=== PATIENT | female | born 2000 | race Caucasian/White ===

== ENCOUNTER 2022-03-06 09:55 | Emergency (ER) | payer OTHER, SELFPAY ==
--- NOTE | 2022-03-06 10:05 | ED.URI ---
HPI - URI/Sore Throat General Chief Complaint: Ear Stated Complaint: Ear Pain Time Seen by Provider: 03/06/22 10:07 Source: patient, RN notes reviewed and old records reviewed Mode of arrival: ambulatory Limitations: no limitations History of Present Illness HPI Narrative: 21-year-old female presents to the [facility] with decreased hearing and bilateral ear pain for days. The [facility] with her mom. Mom states that she has been swimming either Thursday or Thursday and has been using swimmer's ear. Denies any fevers. Denies any new nausea or vomiting. She is estimated delivery date of September 18, 2022 Related Data Home Medications Medication Instructions Recorded Confirmed vits 75-iron 28 mg-folic 1 pkg PO DAILY 03/06/22 03/06/22 acid 800 mcg-omega3 440 mg oral pack Allergies Allergy/AdvReac Type Severity Reaction Status Date / Time AMOXICILLIN TRIHYDRATE AdvReac Mild Hives Uncoded 03/06/22 10:01 POTASSIUM CLAVULANATE AdvReac Mild Hives Uncoded 03/06/22 10:01 Review of Systems Review of Systems: All systems reviewed & are unremarkable except as noted in HPI and below Constitutional: Constitutional: Reports no additional constitutional complaints, Denies chills and Denies fever(s) Eyes: Eyes: Reports no additional eye complaints ENT: Reports as per HPI (Bilateral ear pain), Denies change in voice, Denies dental pain, Denies vertigo, Denies dizziness, Denies nasal congestion, Denies sore throat and Denies throat swelling Comments: Ear pain Cardiovascular: Cardiovascular: Reports no additional cardiovascular complaints, Denies chest pain and Denies dyspnea Respiratory: Respiratory: Reports no additional respiratory complaints, Denies cough and Denies dyspnea Gastrointestinal: Gastrointestinal: Reports no additional gastrointestinal complaints, Denies abdominal pain, Denies nausea and Denies vomiting Musculoskeletal: Musculoskeletal: Reports no additional musculoskeletal complaints Integumentary/Breasts: Skin/Breast: Reports system reviewed and no additional complaints, except as docu Neurologic: Reports system reviewed and no additional complaints, except as documented, Denies vertigo and Denies dizziness Psychiatric: Psychiatric: Reports no additional psychiatric complaints Allergic/Immunologic: Allergic/Immunologic: Reports no additional allergic/immunologic complaints and Denies throat swelling PMFSH Past Medical History Medical History Heart murmur Surgical History Surgical History H/O gynecological procedure Nexplanon insertion 09/08/2017 Nexplanon removal - 10/14/2018 Social History Social History Smoking status: Current some day smoker Tobacco type: cigarettes Alcohol intake: never Substance use: current Substance use type: marijuana Gender identity (if verbalized by the patient): Female Sexual Orientation (if Verbalized by the Patient): Straight or Heterosexual Comments At the time of my signature, I reviewed and agree with the nursing past medical, surgical, social, and family history. There is no relevant family history pertinent to the patient complaint. Exam Const: General: healthy appearing and no acute distress Nutritional Appearance: well nourished Orientation/consciousness: patient oriented x3 Limitations: no limitations HENMT: Head: normal to inspection Ears: external ears normal, Abnormal EAC present cerumen impaction on the right and TM abnormal erythematous bilateral General nose exam: Normal external nose present and Normal nasal mucous membranes and turbinates present Face and sinus: normal facial exam Mouth: Yes Normal oral and palatal mucosa present Throat: posterior oropharynx normal, tonsils normal and uvula midline Eyes: Conjunctivae: conjunctivae normal Pupils: Eq
[2022-03-06 10:07] VITALS: BP 103/54; PULSE 88; RESP 16; TEMP 36.4; O2SAT 99
== END 2022-03-06 10:21 | disposition home or self-care (01) ==
PROVIDERS: Emergency Provider Nurse Practitioner
DX: H66.93 Otitis media, unspecified, bilateral (principal); H61.21 Impacted cerumen, right ear; R01.1 Cardiac murmur, unspecified
CPT/HCPCS: 69209; 99213; A9270; G0463

== ENCOUNTER 2022-05-06 11:11 | Outpatient (CLI) | payer OTHER, SELFPAY ==
[2022-05-06 11:55] LABS: Basophils Absolute Auto 0.1 K/mm3 (0.0-0.1); Basophils Percent Auto 0.6 % (0.2-1.2); Eosinophils Absolute Auto 0.2 K/mm3 (0-0.3); Eosinophils Percent Auto 1.8 % (0-4.4); Hematocrit 37.7 % (37.0-47.0); Hemoglobin 12.6 g/dL (12.0-15.0); Immature Granulocyte Percent A 2.3 % (0-0.5); Lymphocytes Absolute Auto 1.81 K/mm3 (0.9-3.2); Lymphocytes Percent Auto 21.2 % (18.3-44.2); Mean Corpuscular HGB Conc 33.4 g/dl (32-36); Mean Corpuscular Hemoglobin 29.9 pg (26-34); Mean Corpuscular Volume 89.3 fl (80-100); Mean Platelet Volume 10.6 fl (7.4-10.4); Monocytes Absolute Auto 0.5 K/mm3 (0.1-0.6); Monocytes Percent Auto 5.7 % (2.6-8.5); Neutrophils Absolute Auto 5.9 K/mm3 (1.3-6.7); Neutrophils Percent Auto 68.4 % (45.5-73.1); Platelet Count Result 288 k/mm3 (150-375); Red Blood Count 4.22 M/mm3 (4.2-5.4); Red Cell Distribution Width 14.5 % (11.5-14.5); White Blood Count 8.6 K/mm3 (4.5-10.0)
[2022-05-06 12:47] LABS: HIV 1/2 Ab P24 Ag Result Negative (Negative)
[2022-05-06 13:28] LABS: Hepatitis B Surface Antigen Negative (Negative); Rubella IgG Antibody 10.6 IU/ML
[2022-05-07 16:23] LABS: Rapid Plasma Reagin Non-Reactive (NonReactive)
[2022-05-08 13:43] LABS: CMV IgG Antibody >10.00 U/mL (<0.60)
[2022-05-09 14:22] LABS: Varicella IgG Antibody <135.00 Index (>=165.00)
[2022-05-15 20:29] LABS: CF Result NEGATIVE (NEGATIVE); Ethnicity NG
[2022-05-20 14:45] LABS: SMA Results Received Yes
== END 2022-05-06 11:12 | disposition home or self-care (01) ==
LOC: ANHLAB 11:13
PROVIDERS: Visit Provider Obstetrics & Gynecology
DX: N94.89 Other specified conditions associated with female genital organs and menstrual cycle (principal)
CPT/HCPCS: 36415; 81220; 81329; 84702; 85025; 86592; 86644; 86703; 86747; 86762; 86787; 86850; 86900; 86901; 87086; 87340; G0432

== ENCOUNTER 2022-05-23 11:20 | Observation (INO) | payer OTHER, SELFPAY ==
[2022-05-23 11:35] VITALS: BMI 22.3
--- NOTE | 2022-05-23 11:40 | OBADM ---
This patient, Kye Diaz, admitted to the OB room OB Post 111 for observation. Patient/family oriented to hospital policies and general routines including ID bracelet, bed and alarms, visiting hours, pain management, procedures, bathroom and other care routines, personal items, smoking policy, room service/diet, and visiting hours. Patient/Family are encouraged to report perceived risks to care and to ask questions if they do not understand what they are told or what they should do.
[2022-05-23 11:45] VITALS: BP 108/54; PULSE 78
[2022-05-23 12:00] VITALS: BP 105/51; PULSE 78
[2022-05-23 12:15] VITALS: BP 107/52; PULSE 83
[2022-05-23 12:30] VITALS: BP 106/50; PULSE 79
--- NOTE | 2022-05-29 08:59 | PM.OBTRLD ---
OB - Triage/Final Diagnosis Visit Information Reason for evaluation: threatened labor Comments/Additional reasons for admission: I have assessed the risk for this patient, Kye Diaz, and determined that she would benefit from observation care.
== END 2022-05-23 12:38 | disposition home or self-care (01) ==
PROVIDERS: Admitting Provider Obstetrics & Gynecology; Visit Provider Obstetrics & Gynecology
DX: O47.02 False labor before 37 completed weeks of gestation, second trimester (principal); Z3A.23 23 weeks gestation of pregnancy
CPT/HCPCS: G0378; G0379

== ENCOUNTER 2022-06-27 11:07 | Outpatient (CLI) | payer OTHER, SELFPAY ==
[2022-06-27 12:50] LABS: Basophils Absolute Auto 0.1 K/mm3 (0.0-0.1); Basophils Percent Auto 0.5 % (0.2-1.2); Eosinophils Absolute Auto 0.1 K/mm3 (0-0.3); Eosinophils Percent Auto 1.3 % (0-4.4); Hematocrit 34.6 % (37.0-47.0); Immature Granulocyte Absolute 0.17 K/mm3 (0.00-0.031); Immature Granulocyte Percent A 1.5 % (0-0.5); Lymphocytes Percent Auto 15.3 % (18.3-44.2); Mean Corpuscular HGB Conc 34.7 g/dl (32-36); Mean Corpuscular Hemoglobin 31.2 pg (26-34); Mean Corpuscular Volume 89.9 fl (80-100); Mean Platelet Volume 10.7 fl (7.4-10.4); Monocytes Absolute Auto 0.8 K/mm3 (0.1-0.6); Monocytes Percent Auto 6.9 % (2.6-8.5); Neutrophils Absolute Auto 8.3 K/mm3 (1.3-6.7); Neutrophils Percent Auto 74.5 % (45.5-73.1); Platelet Count Result 208 k/mm3 (150-375); Red Blood Count 3.85 M/mm3 (4.2-5.4); Red Cell Distribution Width 13.3 % (11.5-14.5); White Blood Count 11.1 K/mm3 (4.5-10.0)
[2022-06-27 13:09] LABS: Glucose 1 Hour PP 50gm Dose 92 mg/dL
== END 2022-06-27 11:08 | disposition home or self-care (01) ==
LOC: ANHLAB 11:10
PROVIDERS: Visit Provider Obstetrics & Gynecology
DX: Z34.90 Encounter for supervision of normal pregnancy, unspecified, unspecified trimester (principal); Z3A.00 Weeks of gestation of pregnancy not specified
CPT/HCPCS: 36415; 82947; 85025

== ENCOUNTER 2022-07-04 08:24 | Emergency (ER) | payer OTHER, SELFPAY ==
[2022-07-04 08:30] VITALS: BP 123/61; PULSE 88; RESP 18; TEMP 36.4; O2SAT 100
--- NOTE | 2022-07-04 08:41 | ED.URI ---
HPI - URI/Sore Throat General Chief Complaint: Upper Respiratory Infection Stated Complaint: nose congestion, runny nose Time Seen by Provider: 07/04/22 08:46 Source: patient, RN notes reviewed and old records reviewed Mode of arrival: ambulatory Limitations: no limitations History of Present Illness HPI Narrative: 22-year-old female presents to the [facility] with nasal congestion, runny nose for 3 days Patient states that she is 29 weeks . Per medical record had visited OB, Dr. Herrera, 01 July, 3 days ago Related Data Home Medications Medication Instructions Recorded Confirmed [id number] 1 mg 1 tablet PO DAILY 07/04/22 07/04/22 tablet Allergies Allergy/AdvReac Type Severity Reaction Status Date / Time amoxicillin [From Augmentin] Allergy Rash Verified 07/04/22 08:28 clavulanic acid Allergy Rash Verified 07/04/22 08:28 [From Augmentin] Review of Systems Review of Systems: All systems reviewed & are unremarkable except as noted in HPI and below Constitutional: Constitutional: Reports no additional constitutional complaints, Denies chills and Denies fever(s) Eyes: Eyes: Reports no additional eye complaints ENT: Reports as per HPI and Reports nasal congestion Cardiovascular: Cardiovascular: Reports no additional cardiovascular complaints Respiratory: Respiratory: Reports no additional respiratory complaints Gastrointestinal: Gastrointestinal: Reports no additional gastrointestinal complaints Musculoskeletal: Musculoskeletal: Reports no additional musculoskeletal complaints Integumentary/Breasts: Skin/Breast: Reports system reviewed and no additional complaints, except as docu Neurologic: Reports system reviewed and no additional complaints, except as documented Psychiatric: Psychiatric: Reports no additional psychiatric complaints Allergic/Immunologic: Allergic/Immunologic: Reports no additional allergic/immunologic complaints [facility] Past Medical History Medical History (Updated 07/04/22 @ 08:58 by Paulette Chadwick APRN) Encounter for screening examination for sexually transmitted disease Heart murmur Surgical History Surgical History H/O gynecological procedure Nexplanon insertion 09/08/2017 Nexplanon removal - 10/14/2018 Social History Social History Smoking status: Current some day smoker Tobacco type: cigarettes Alcohol intake: never Substance use: current Substance use type: marijuana Gender identity (if verbalized by the patient): Female Sexual Orientation (if Verbalized by the Patient): Straight or Heterosexual Comments At the time of my signature, I reviewed and agree with the nursing past medical, surgical, social, and family history. There is no relevant family history pertinent to the patient complaint. Exam Const: General: healthy appearing, no acute distress and alert Nutritional Appearance: well nourished Orientation/consciousness: patient oriented x3 Limitations: no limitations HENMT: Head: normal to inspection Ears: external ears normal, TM's normal bilaterally and EAC's normal General nose exam: Normal external nose present, Normal nares present and no nasal discharge noted Face and sinus: normal facial exam and sinuses nontender Mouth: Yes Normal oral and palatal mucosa present, Yes lip normal and Yes moist mucous membranes Throat: posterior oropharynx normal and uvula midline Eyes: General: appearance normal, both eyes and all related structures Conjunctivae: conjunctivae normal Pupils: Equal, round and reactive pupils present Neck: Neck: normal visual inspection, no lymphadenopathy and no meningeal signs Chest: Chest palpation & inspection: normal inspection of the chest Resp: Effort & Inspection: normal respiratory effort and no use of accessory muscles Auscultation: clear to auscultation bilaterally, no
== END 2022-07-04 09:02 | disposition home or self-care (01) ==
PROVIDERS: Emergency Provider Nurse Practitioner
DX: O99.513 Diseases of the respiratory system complicating pregnancy, third trimester (principal); Z3A.29 29 weeks gestation of pregnancy; J06.9 Acute upper respiratory infection, unspecified; F17.210 Nicotine dependence, cigarettes, uncomplicated; R01.1 Cardiac murmur, unspecified
CPT/HCPCS: 99211; G0463

== ENCOUNTER 2022-07-12 09:20 | Outpatient (RCR) | payer OTHER, SELFPAY ==
[2022-07-12 10:09] VITALS: BP 109/68; PULSE 98
== END 2022-09-05 07:36 | disposition home or self-care (01) ==
LOC: ANHOBOP 09:20
PROVIDERS: Visit Provider Obstetrics & Gynecology
DX: O36.8130 Decreased fetal movements, third trimester, not applicable or unspecified (principal); Z3A.30 30 weeks gestation of pregnancy
CPT/HCPCS: 59025

== ENCOUNTER 2022-08-09 11:01 | Observation (INO) | payer OTHER, SELFPAY ==
[2022-08-09] VITALS (8 sets, daily range): BP systolic 106–114; BP diastolic 61–70; PULSE 84–102; BMI 24.4
--- NOTE | 2022-08-09 11:10 | OBADM ---
This patient, Kye Diaz, admitted to the OB room OB Post 116 for observation. Patient/family oriented to hospital policies and general routines including ID bracelet, bed and alarms, visiting hours, pain management, procedures, bathroom and other care routines, personal items, smoking policy, room service/diet, and visiting hours. Patient/Family are encouraged to report perceived risks to care and to ask questions if they do not understand what they are told or what they should do.
[2022-08-09 12:47] LABS: Appearance Urine Clear (Clear); Bilirubin Urine Negative (Negative); Blood Urine Negative (Negative); Color Urine Yellow (Yellow); Glucose Urine UA Negative (Negative); Ketones Urine Negative (Negative); Leukocyte Esterase Ur Negative LEU/UL (NEGATIVE); Nitrate Urine Negative (Negative); Protein Urine Negative (Negative); Specific Grav Ur 1.015 (1.001-1.035); Urobilinogen Urine 0.2 mg/dL (<2.0)
[2022-08-09 12:56] LABS: Add Urine Microscopic? NO
--- NOTE | 2022-08-13 07:54 | P.PNOB_ITS ---
OB - Triage/Final Diagnosis Visit Information Reason for evaluation: threatened labor Comments/Additional reasons for admission: I have assessed the risk for this patient, Kye Diaz, and determined that she would benefit from observation care. Evaluation Laboratory results: Laboratory Tests 08/09/22 11:53 Urine Color Yellow Urine Appearance Clear Urine pH 7.0 Ur Specific [place] 1.015 Urine Protein Negative Urine Glucose (UA) Negative Urine Ketones Negative Ur Blood (Man) Negative Urine Nitrate Negative Urine Bilirubin Negative Urine Urobilinogen 0.2 Ur Leukocyte Esterase Negative
== END 2022-08-09 13:08 | disposition home or self-care (01) ==
PROVIDERS: Admitting Provider Obstetrics & Gynecology Gynecology; Visit Provider Obstetrics & Gynecology Gynecology
DX: O47.03 False labor before 37 completed weeks of gestation, third trimester (principal); Z3A.34 34 weeks gestation of pregnancy
CPT/HCPCS: 81003; 87086; G0378; G0379

== ENCOUNTER 2022-08-27 17:08 | Observation (INO) | payer OTHER, SELFPAY ==
[2022-08-27 17:15] VITALS: BMI 23.4
--- NOTE | 2022-08-27 17:20 | PC.NURSE ---
States leaking fluid since last night and had Spotting this AM
--- NOTE | 2022-08-27 18:05 | PC.NURSE ---
Dr. Pena notified of admission and assessment. ROM plus negative. No vaginal bleeding. No SVE due to no contractions. WIll discharge home.
[2022-08-27 18:22] VITALS: BP 118/75; PULSE 96
== END 2022-08-27 18:30 | disposition home or self-care (01) ==
PROVIDERS: Admitting Provider Obstetrics & Gynecology; Visit Provider Obstetrics & Gynecology
DX: O47.03 False labor before 37 completed weeks of gestation, third trimester (principal); Z3A.36 36 weeks gestation of pregnancy
CPT/HCPCS: 84112; G0379

== ENCOUNTER 2022-08-28 23:25 | Observation (INO) | payer OTHER, SELFPAY ==
[2022-08-28 23:25] VITALS: BMI 26.2
--- NOTE | 2022-08-29 01:07 | OBADM ---
This patient, Kye Diaz, admitted to the OB room Labor/Delivery/Recovery 103 for observation. Patient/family oriented to hospital policies and general routines including ID bracelet, bed and alarms, visiting hours, pain management, procedures, bathroom and other care routines, personal items, smoking policy, room service/diet, and visiting hours. Patient/Family are encouraged to report perceived risks to care and to ask questions if they do not understand what they are told or what they should do.
== END 2022-08-29 01:10 | disposition home or self-care (01) ==
PROVIDERS: Admitting Provider Obstetrics & Gynecology; Visit Provider Obstetrics & Gynecology
DX: O47.1 False labor at or after 37 completed weeks of gestation (principal); Z3A.37 37 weeks gestation of pregnancy
CPT/HCPCS: 59025; G0378; G0379

== ENCOUNTER 2022-09-03 20:43 | Observation (INO) | payer OTHER, SELFPAY ==
[2022-09-03 21:00] VITALS: BP 117/66; PULSE 87
[2022-09-03 21:01] VITALS: BP 117/71; PULSE 95
[2022-09-03 21:11] VITALS: TEMP 36.9
[2022-09-03 22:03] VITALS: BP 117/75; PULSE 94
[2022-09-03 22:54] LABS: Appearance Urine Clear (Clear); Bilirubin Urine Negative (Negative); Blood Urine Negative (Negative); Glucose Urine UA Negative (Negative); Ketones Urine Negative (Negative); Leukocyte Esterase Ur Trace LEU/UL (Negative); Nitrate Urine Negative (Negative); Protein Urine Negative (Negative); Urobilinogen Urine 0.2 mg/dL (<2.0); pH Urine 6.5 (5.0-9.0)
[2022-09-03 23:00] VITALS: BP 116/71; PULSE 74
[2022-09-03 23:00] LABS: Bacteria Urine Trace /hpf; RBC Urine 0-2 /hpf (0-2); Squamous Epithelial Cell Urine Rare /hpf (Few); WBC Urine 0-3 /hpf
[2022-09-03 23:01] LABS: Add Urine Microscopic? YES; Color Urine Light Yellow (Yellow)
[2022-09-03 23:29] VITALS: BMI 24.5
--- NOTE | 2022-09-03 23:29 | OBADM ---
This patient, Kye Diaz, admitted to the OB room Labor/Delivery/Recovery 105 for observation. Patient/family oriented to hospital policies and general routines including ID bracelet, bed and alarms, visiting hours, pain management, procedures, bathroom and other care routines, personal items, smoking policy, room service/diet, and visiting hours. Patient/Family are encouraged to report perceived risks to care and to ask questions if they do not understand what they are told or what they should do.
--- NOTE | 2022-09-04 11:53 | P.PNOB_ITS ---
OB - Triage/Final Diagnosis Visit Information Comments/Additional reasons for admission: I have assessed the risk for this patient, Kye Diaz, and determined that she would benefit from observation care. Evaluation Laboratory results: Laboratory Tests 09/03/22 21:54 Urine Color Light yellow Urine Appearance Clear Urine pH 6.5 Ur Specific [place] 1.010 Urine Protein Negative Urine Glucose (UA) Negative Urine Ketones Negative Ur Blood (Man) Negative Urine Nitrate Negative Urine Bilirubin Negative Urine Urobilinogen 0.2 Leukocyte Esterase Rfl Trace H Urine RBC 0-2 Urine WBC 0-3 Ur Squamous Epith Cells Rare Urine Bacteria Trace Vital signs: Vital Signs - 24 hr 09/03/22 21:00 09/03/22 21:01 09/03/22 21:11 Temperature 98.4 F Pulse Rate 87 95 Blood Pressure 117/66 117/71 09/03/22 22:03 09/03/22 23:00 Temperature Pulse Rate 94 74 Blood Pressure 117/75 116/71 Final Diagnosis (1) False labor: Code(s): O47.9 - False labor, unspecified Status: Acute
== END 2022-09-03 23:28 | disposition home or self-care (01) ==
PROVIDERS: Student in an Organized Health Care Education/Training Program; Admitting Provider Obstetrics & Gynecology; Visit Provider Obstetrics & Gynecology
DX: O47.1 False labor at or after 37 completed weeks of gestation (principal); Z3A.37 37 weeks gestation of pregnancy
CPT/HCPCS: 81001; G0378; G0379

== ENCOUNTER 2022-09-05 20:00 | Inpatient (IN) | payer OTHER, SELFPAY ==
[2022-09-05] VITALS (45 sets, daily range): BP systolic 115–134; BP diastolic 61–84; PULSE 54–141; O2SAT 83–100; BMI 24.5
[2022-09-05] MEDS: LACTATED RINGERS 1,000 ML 125 ML IV CONT ×2 (20:00→23:00)
[2022-09-05 20:47] LABS: Basophils Percent Auto 0.3 % (0.2-1.2); Eosinophils Absolute Auto 0.1 K/mm3 (0-0.3); Eosinophils Percent Auto 0.8 % (0-4.4); Hematocrit 35.7 % (37.0-47.0); Hemoglobin 12.3 g/dL (12.0-15.0); Immature Granulocyte Absolute 0.16 K/mm3 (0.00-0.031); Immature Granulocyte Percent A 1.3 % (0-0.5); Lymphocytes Absolute Auto 1.97 K/mm3 (0.9-3.2); Lymphocytes Percent Auto 15.5 % (18.3-44.2); Mean Corpuscular HGB Conc 34.5 g/dl (32-36); Mean Corpuscular Hemoglobin 30.6 pg (26-34); Mean Corpuscular Volume 88.8 fl (80-100); Mean Platelet Volume 11.6 fl (7.4-10.4); Monocytes Absolute Auto 0.7 K/mm3 (0.1-0.6); Monocytes Percent Auto 5.6 % (2.6-8.5); Neutrophils Absolute Auto 9.8 K/mm3 (1.3-6.7); Neutrophils Percent Auto 76.5 % (45.5-73.1); Platelet Count Result 188 k/mm3 (150-375); Red Blood Count 4.02 M/mm3 (4.2-5.4); Red Cell Distribution Width 13.6 % (11.5-14.5); White Blood Count 12.7 K/mm3 (4.5-10.0)
--- NOTE | 2022-09-05 20:58 | LDADM ---
This patient, Kye Diaz, was admitted to Labor/Delivery/Recovery 103 on 09/05/22 at 20:00. Plans for labor, pain management and were discussed with patient. Patient/family oriented to hospital policies and general routines including ID bracelet, bed and alarms, visiting hours, pain management, procedures, bathroom and other care routines, personal items, smoking policy, room service/diet and guest tray routines, infant security routines, and visiting hours. Patient/Family are encouraged to report perceived risks to care and to ask questions if they do not understand what they are told or what they should do. See OBIX for further documentation.
--- NOTE | 2022-09-05 21:31 | WPDANESEPP ---
Anes - Eval Pre Procedure Procedure: labor epidural Date/Time: 09/05/22 21:31 Surgeon: soy Preop Diagnosis: pain during labor Pre Op Diagnosis: Contractions Patient Data Age: 22 Gender: F Height: Weight: Last Vital Signs Pulse 96 09/05/22 20:30 BP 119/73 09/05/22 20:30 Pulse Ox 100 09/05/22 21:30 Allergies Allergy/AdvReac Type Severity Reaction Status Date / Time amoxicillin [From Augmentin] Allergy Rash Verified 09/03/22 23:14 clavulanic acid Allergy Rash Verified 09/03/22 23:14 [From Augmentin] Home Medications Medication Instructions Recorded Confirmed Type revqkkcl-bpv-Wi-FA 1 mg 1 tablet PO DAILY 07/04/22 09/03/22 History tablet fluconazole 150 mg tablet 150 mg PO ONCE #1 tablet 09/01/22 09/01/22 Rx (Diflucan) Laboratory Tests 09/05/22 09/05/22 20:38 20:38 WBC 12.7 K/mm3 H K/mm3 (4.5-10.0) RBC 4.02 M/mm3 L M/mm3 (4.2-5.4) Hgb 12.3 g/dL g/dL (12.0-15.0) Hct 35.7 % L % (37.0-47.0) MCV 88.8 fl fl (80-100) MCH 30.6 pg pg (26-34) MCHC 34.5 g/dl g/dl (32-36) RDW 13.6 % % (11.5-14.5) Plt Count 188 k/mm3 k/mm3 (150-375) MPV 11.6 fl H fl (7.4-10.4) Immature Gran % (Auto) 1.3 % H % (0-0.5) Neut % (Auto) 76.5 % H % (45.5-73.1) Lymph % (Auto) 15.5 % L % (18.3-44.2) [place] % (Auto) 5.6 % % (2.6-8.5) Eos % (Auto) 0.8 % % (0-4.4) Baso % (Auto) 0.3 % % (0.2-1.2) Lymph # (Auto) 1.97 K/mm3 K/mm3 (0.9-3.2) [place] # (Auto) 0.7 K/mm3 H K/mm3 (0.1-0.6) Eos # (Auto) 0.1 K/mm3 K/mm3 (0-0.3) Baso # (Auto) 0.0 K/mm3 K/mm3 (0.0-0.1) Abs Immat Gran (auto) 0.16 K/mm3 H K/mm3 (0.00-0.031) Absolute Neuts (auto) 9.8 K/mm3 H K/mm3 (1.3-6.7) Absolute Nucleated RBC 0.0 K/mm3 K/mm3 (0.0-0.012) Nucleated RBC % 0.0 % % (0.0-0.2) RPR Pending Patient hx anesthesia problems: none Family hx anesthesia problems: none Results Review: All pre-operative results and documents have been reviewed as part of the pre-operative evaluation. [facility] Past Medical History Medical History (Updated 09/05/22 @ 21:31 by Claudia Brush CRNA) Encounter for screening examination for sexually transmitted disease Heart murmur IUP (intrauterine ), incidental Vaginitis Surgical History Surgical History H/O gynecological procedure Nexplanon insertion 09/08/2017 Nexplanon removal - 10/14/2018 Social History Social History Smoking packs per day: 0.5 Smoking cigarettes per day: 10.0 Years smoked: 3 Smoking pack-years: 1.50 Smoking status: Current every day smoker Tobacco type: cigarettes Second hand tobacco smoke exposure: Yes Alcohol intake: never Substance use: former Substance use type: marijuana Lack of Transportation: No Lack of Food: Never True Current Housing: I Have Housing Concerned About Future Housing: No Difficulty Paying Gas/Electric Bills: No Difficulty Paying for Meds: No Currently Unemployed: YES Education: Grade School Difficulty w/ Childcare or Family Care: No Gender identity (if verbalized by the patient): Female Sexual Orientation (if Verbalized by the Patient): Straight or Heterosexual Spiritual care concerns: No Exam Day of Procedure 09/05/22 21:31
[2022-09-06] VITALS (73 sets, daily range): BP systolic 93–124; BP diastolic 49–81; PULSE 65–100; RESP 14–16; TEMP 36.4–37.1; O2SAT 95–100
[2022-09-06] MEDS: ONDANSETRON INJ 4 MG/2 ML VIAL IV PUSH (01:12)
[2022-09-06] MEDS: FAMOTIDINE 20 MG/2 ML VIAL IV PUSH (01:12)
[2022-09-06] MEDS: OXYTOCIN 30 UNITS/NS 500 ML 30 UNITS/500 ML BAG 999 UNITS IV CONT (03:44)
--- NOTE | 2022-09-06 04:10 | WPDHPUPDATE1 ---
History and Physical Update Update Date/Time: 09/06/22 04:10 History and Physical has been reviewed, including an updated exam of the patient. There are NO changes in the patient's condition. Risks, benefits, and alternatives have been discussed and questions answered. Patient agrees to proceed with procedure.
--- NOTE | 2022-09-06 04:10 | WPDOBADMIT ---
Obstetrics - Admit Note Admission Note: record reviewed. No pertinent additions to the history and/or any subsequent changes in the physical findings that are not consistent with the expected course of the were found. Additions to the history and/or subsequent changes in the physical findings follow. None.
--- NOTE | 2022-09-06 04:10 | PM.OBPRVD ---
OB - Delivery Note Procedure Delivery monitor: External FHT and External Uterine Route of delivery: Episiotomy description: None Laceration Description: Vaginal Delivery repair: chromic Specimen: Yes Quantitative Blood Loss (ml): 300 Anesthesia type: Epidural Disposition: Floor Complications: none Narrative: Prep draped in usual manner for this procedure. Maternal expulsive efforts readily delivered vertex over intact perineum. Nuchal cord was noted and clamped and cut. Rest of baby was delivered without difficulty and placenta delivered spontaneously as well. Cervix vagina and vulva were inspected bilateral superficial vaginal wall tears were approximated using 2-0 chromic in a running manner with good approximation hemostasis noted. At this point the procedure was considered terminated with immediate condition of mother baby both excellent. [place] Baby Weeks of gestation at delivery: 38 Infant gender: Female Weight (pounds): 5 Weight (ounces): 15 presentation: vertex Placenta delivery description: Spontaneous Cord Vessel Description: 3 Vessels and Nuchal Cord score one minute: 8 score five minutes: 9
--- NOTE | 2022-09-06 06:41 | PC.NURSE ---
Patient transferred to post room #284 via wheelchair. Support person present. Oriented to unit, room, information board, rooming in, admission packet and security measures. Patient verbalizes understanding.
[2022-09-06] MEDS: BENZOCAINE 20% AER SPR (*SP) 56 GM CAN 1 SPRAY TOPICAL (06:46)
[2022-09-06] MEDS: WITCH HAZEL 40 PADS 1 PAD TOPICAL (06:46)
[2022-09-06] MEDS: DOCUSATE SODIUM 100 MG CAPSULE PO ×2 (08:38→16:00)
[2022-09-06] MEDS: MULTIVIT/MIN/PREN/FOL AC/IRON TABLET 1 TAB PO (08:38)
[2022-09-06] MEDS: SIMETHICONE 80 MG TAB.CHEW PO ×2 (08:38→16:00)
[2022-09-07 05:31] LABS: Hematocrit 33.6 % (37.0-47.0); Hemoglobin 11.4 g/dL (12.0-15.0)
[2022-09-07] MEDS: DOCUSATE SODIUM 100 MG CAPSULE PO (08:07)
[2022-09-07] MEDS: MULTIVIT/MIN/PREN/FOL AC/IRON TABLET 1 TAB PO (08:07)
[2022-09-07] MEDS: SIMETHICONE 80 MG TAB.CHEW PO (08:07)
[2022-09-07 08:22] VITALS: BP 108/58; PULSE 83; RESP 18; TEMP 36.5; O2SAT 98
--- NOTE | 2022-09-07 09:26 | PM.OBDSVD ---
DS: Admitting Diagnosis Discharge Date 09/07/2022 Admitting Diagnosis OB - DS: Summary OB Procedures : None OB Procedures Intrapartum: Spontaneous Vag Delivery OB Procedures: : None Time Spent with Patient Time attestation: Total time spent providing and/or coordinating discharge services: DS: Data Data Completed and Pending Pending studies at discharge: Pending at discharge 09/06/22 06:51 Surgical [PTH] Routine Labs on day of discharge: Labs from last 24 hours 09/07/22 05:18 Hgb 11.4 L Hct 33.6 L Discharge Plan Discharge Discharging Clinician: Marcellus Pena Patient Disposition: Home, Self-Care Activity: as tolerated Diet: as tolerated Patient Instructions: Antibiotic Form Stand Alone Forms: General Discharge Information Follow-up/Referrals: Marcellus Pena MD [Physician] - 3 Weeks Discharge Medications: New ibuprofen 600 mg Tablet 600 mg PO Q6H PRN (Reason: Cramping) Qty: 30 0RF Continued ktrdphce-wnu-Jg-FA 1 mg Tablet 1 tablet PO DAILY Discontinued fluconazole [Diflucan] 150 mg tablet 150 mg PO ONCE Qty: 1 0RF Rx Instructions: as a single dose Date of admission: 09/05/22 20:00 Primary Care Provider: PHYSICIAN,PROCUREMENT PROFESSIONAL Admitting Provider: Marcellus Pena Attending physician on admission: Marcellus Pena Condition: Stable
[2022-09-08 08:44] VITALS: BP 130/78; PULSE 91; RESP 20; TEMP 37; O2SAT 99
[2022-09-08 11:53] LABS: Rapid Plasma Reagin Non-Reactive (NonReactive)
== END 2022-09-07 12:25 | disposition home or self-care (01) | DRG 560 ==
LOC: ANHLDR 20:23 → ANHOB2 09-06 06:45
PROVIDERS: Admitting Provider Obstetrics & Gynecology; Visit Provider Obstetrics & Gynecology
DX: O69.81X0 Labor and delivery complicated by cord around neck, without compression, not applicable or unspecified (principal); O70.0 First degree perineal laceration during delivery; O77.0 Labor and delivery complicated by meconium in amniotic fluid; Z3A.38 38 weeks gestation of pregnancy; Z37.0 Single live birth
CPT/HCPCS: 36415; 85014; 85018; 85025; 86592; 86850; 86900; 86901; 88307; A9270; J2405; J2590; J2795; J7120

== ENCOUNTER 2022-12-10 09:09 | Outpatient (CLI) | payer OTHER, SELFPAY ==
[2022-12-10 10:06] LABS: Beta HCG Quantitative < 2.39 mIU/ML
== END 2022-12-10 09:10 | disposition home or self-care (01) ==
PROVIDERS: Visit Provider Student in an Organized Health Care Education/Training Program
DX: N92.6 Irregular menstruation, unspecified (principal)
CPT/HCPCS: 36415; 84702

== ENCOUNTER 2023-05-31 09:31 | Emergency (ER) | payer OTHER, SELFPAY ==
--- NOTE | ~2023-05-31 | XR_ITS ---
XR wrist RT min 3V DATE: 05/31/2023 09:50 INDICATION: Diffuse right wrist pain following a fall 2 days ago TECHNIQUE: 4 views COMPARISON: None FINDINGS: No fracture or dislocation, periosteal reaction or bone destruction, joint space narrowing, erosive change or chondrocalcinosis. IMPRESSION: Negative Reviewed, dictated and finalized at location A. IMPRESSION: Negative
[2023-05-31 09:40] VITALS: BP 115/71; PULSE 77; RESP 16; TEMP 36.7; O2SAT 99
[2023-05-31 09:42] VITALS: BP 115/71; PULSE 77; RESP 16; TEMP 36.7; O2SAT 99
--- NOTE | 2023-05-31 09:48 | ED.GENADULT ---
HPI - General Adult General Chief complaint: Extremity Injury, Upper Stated complaint: right wrist pain Source: patient Mode of arrival: ambulatory Limitations: no limitations History of Present Illness HPI narrative: 22-year-old female presented for complaint of right wrist pain after injury a few days ago. Patient states she tripped over a baby gate, but is unsure how she landed because it was dark. She denies numbness, tingling, weakness to the hand or fingers. Denies swelling or deformity. Has taken ibuprofen. Rates pain 8/10, constant. Related Data Home Medications Medication Instructions Recorded Confirmed etonogestrel 68 mg subdermal 1 implant subdermal ONCE 05/31/23 05/31/23 implant (Nexplanon) Allergies Allergy/AdvReac Type Severity Reaction Status Date / Time amoxicillin [From Augmentin] Allergy Intermediate Rash Verified 05/31/23 09:41 clavulanic acid Allergy Intermediate Rash Verified 05/31/23 09:41 [From Augmentin] Review of Systems Review of Systems: CONSTITUTIONAL: Denies body aches, fever, chills EYES: Denies visual changes ENT: Denies rhinorrhea, congestion CARDIOVASCULAR: Denies chest pain, palpitations, or edema. RESPIRATORY: Denies cough or dyspnea. GASTROINTESTINAL: Denies abdominal pain, nausea, vomiting, or diarrhea. SKIN: Denies rash, itching, or wounds. MUSCULOSKELETAL: reports right wrist pain Denies back pain, or myalgia. NEUROLOGIC: Denies headache, numbness, tingling, or weakness. PSYCH: Denies depression or anxiety. All systems reviewed & are unremarkable except as noted in HPI and below PMFSH Past Medical History Medical History Encounter for screening examination for sexually transmitted disease Encounter for surveillance of other contraceptives Heart murmur Irregular menstrual cycle IUP (intrauterine ), incidental Vaginitis Surgical History Surgical History H/O gynecological procedure Nexplanon insertion 09/08/2017 Nexplanon removal - 10/14/2018 Nexplanon insertion 2022 Social History Social History Smoking packs per day: 0.5 Smoking cigarettes per day: 10.0 Years smoked: 3 Smoking pack-years: 1.50 Smoking status: Current every day smoker Tobacco type: cigarettes Second hand tobacco smoke exposure: Yes Alcohol intake: never Substance use: former Substance use type: marijuana Lack of Transportation: No Lack of Food: Never True Current Housing: I Have Housing Concerned About Future Housing: No Difficulty Paying Gas/Electric Bills: No Difficulty Paying for Meds: No Currently Unemployed: No Education: Don't Know Difficulty w/ Childcare or Family Care: No Living arrangements: with family Additional living arrangements comments: mother Occupation/Education: unemployed Gender identity (if verbalized by the patient): Female Sexual Orientation (if Verbalized by the Patient): Straight or Heterosexual Spiritual care concerns: No Comments At time of signature, I have reviewed and agree with nursing past medical, surgical, social and family history unless otherwise noted. Please see nursing chart for further information. There is no relevant family history pertinent to the presenting complaint Exam Narrative: GENERAL: Well-appearing, well-nourished, and in no acute distress. HEAD: Normocephalic, atraumatic. EYES: PERRLA, conjunctivae clear NECK: Supple. CHEST: Speaks in full sentences. No respiratory distress. HEART: Regular rate and rhythm. Normal and equal peripheral pulses. EXTREMITIES: Right hand has normal strength and sensation, full range of motion of wrist, endorses pain with movement. Pain is reported to distal ulna. No swelling, erythema, or ecchymosis, No point tenderness. No open wounds, or obvious deformity; ali
== END 2023-05-31 10:10 | disposition home or self-care (01) ==
PROVIDERS: Emergency Provider Nurse Practitioner Family; PCP Family Medicine
DX: S60.211A Contusion of right wrist, initial encounter (principal); W22.8XXA Striking against or struck by other objects, initial encounter; R01.1 Cardiac murmur, unspecified; F17.210 Nicotine dependence, cigarettes, uncomplicated
CPT/HCPCS: 73110; 99213; G0463

== ENCOUNTER 2023-10-08 12:56 | Emergency (ER) | payer OTHER, SELFPAY ==
[2023-10-08 13:25] VITALS: BP 109/63; PULSE 85; RESP 16; TEMP 36.9; O2SAT 100
--- NOTE | 2023-10-08 14:10 | ED.URI ---
HPI - URI/Sore Throat General Chief Complaint: Upper Respiratory Infection Stated Complaint: sinus issue,not able to hear from right ear Time Seen by Provider: 10/08/23 14:10 Source: patient Limitations: no limitations History of Present Illness HPI Narrative: 23-year-old female presents with complaint of nasal, sinus congestion with sinus headaches and green drainage when blowing nose for the past 2 days. Afebrile. Taking [id number] Mucinex cold and Sinus. No cough. No chest pain or shortness breath. Patient is well-appearing. All systems reviewed and negative except as noted above. Related Data Allergies Allergy/AdvReac Type Severity Reaction Status Date / Time amoxicillin [From Augmentin] Allergy Intermediate Rash Verified 10/08/23 13:26 clavulanic acid Allergy Intermediate Rash Verified 10/08/23 13:26 [From Augmentin] Review of Systems Review of Systems: CONSTITUTIONAL: Denies fever, chills, or sweats. EYES: Denies visual changes, redness, or discharge. ENT: Denies Reports rhinorrhea, congestion, sore throat, right ear pain. CARDIOVASCULAR: Denies chest pain, palpitations, or edema. RESPIRATORY: Denies cough or dyspnea. GASTROINTESTINAL: Denies abdominal pain, nausea, vomiting, or diarrhea. GENITOURINARY: Denies dysuria or hematuria. SKIN: Denies rash or itching. MUSCULOSKELETAL: Denies back pain, joint pain, or myalgia. NEUROLOGIC: Denies headache, numbness, or weakness. PSYCHIATRIC: Denies anxiety or depression. All other systems reviewed are negative, except as documented in HPI. [facility] Past Medical History Medical History Encounter for screening examination for sexually transmitted disease Encounter for surveillance of other contraceptives Heart murmur Irregular menstrual cycle IUP (intrauterine ), incidental Vaginitis Surgical History Surgical History H/O gynecological procedure Nexplanon insertion 09/08/2017 Nexplanon removal - 10/14/2018 Nexplanon insertion 2022 Social History Social History Smoking packs per day: 0.5 Smoking cigarettes per day: 10.0 Years smoked: 3 Smoking pack-years: 1.50 Smoking status: Current every day smoker Tobacco type: cigarettes Second hand tobacco smoke exposure: Yes Alcohol intake: never Substance use: former Substance use type: marijuana Lack of Transportation: No Lack of Food: Never True Current Housing: I Have Housing Concerned About Future Housing: No Difficulty Paying Gas/Electric Bills: No Difficulty Paying for Meds: No Currently Unemployed: No Education: Don't Know Difficulty w/ Childcare or Family Care: No Living arrangements: with family Additional living arrangements comments: mother Occupation/Education: unemployed Gender identity (if verbalized by the patient): Female Sexual Orientation (if Verbalized by the Patient): Straight or Heterosexual Spiritual care concerns: No Comments At time of signature, agree with nursing past medical, surgical, social and family history. There is no relevant family history pertinent to the presenting complaint. Exam Narrative: GENERAL: This is a well-nourished, well-developed patient, in no apparent distress. HEAD: normocephalic, atraumatic. EYES: PERRL. Sclera clear/white. Vision is grossly intact. EARS: External ears normal, auditory canals clear and without drainage, Fluid bilateral TMs without erythema or perforation. Hearing grossly intact. NOSE: External nose normal with Clear nasal drainage, nares without redness or swelling. THROAT: Mucous membranes moist, Clear postnasal drainage without erythema. NECK: Neck supple, non-tender without lymphadenopathy, masses or thyromegaly. CARDIOVASCULAR: Regular rate and rhythm without murmurs, gallops, or rubs. RESPIRATORY:
== END 2023-10-08 14:19 | disposition home or self-care (01) ==
PROVIDERS: Nurse Practitioner Family; Emergency Provider Nurse Practitioner Family; PCP Family Medicine
DX: J01.90 Acute sinusitis, unspecified (principal); Z20.822 Contact with and (suspected) exposure to COVID-19; F17.210 Nicotine dependence, cigarettes, uncomplicated; R01.1 Cardiac murmur, unspecified
CPT/HCPCS: 87426; 87804; 99213; C9803; G0463